=== PATIENT | male | born 1975 | race Caucasian/White ===

== ENCOUNTER 2022-07-31 19:02 | Observation (INO) | payer BC ==
[2022-07-31 19:35] VITALS: BMI 29.9
[2022-07-31] MEDS ORDERED: DIPHTH,PERTUSS(ACELL),TET 0.5 ML DISP.SYRIN IM ONE ×3 (20:57→22:45)
[2022-07-31] MEDS ORDERED: ACETAMINOPHEN 1000 MG/100 ML BAG IVPB ONE (20:57)
[2022-07-31] MEDS ORDERED: ACETAMINOPHEN INJECTION 100 ML IVPB ONE (21:52)
[2022-07-31 22:27] LABS: HEMATOCRIT 43.8 % (35.4-49); MCHC 34.4 g/dl (32.0-35.9); MEAN CELL VOLUME 90.1 fl (80-96); MEAN PLT VOLUME 7.8 fl (7.5-11.1); PLATELET COUNT 197 10^3/uL (134-434); RBC 4.86 M/mm3 (4.00-5.60); RDW 12.7 % (11.9-15.9); WHITE BLOOD COUNT 8.7 K/mm3 (4.0-10.0)
[2022-07-31 22:50] LABS: ALBUMIN 4.5 g/dl (3.4-5.0); BLOOD UREA NITROGEN 15.6 mg/dL (7-18)
[2022-07-31 22:52] LABS: PROTHROMBIN TIME (PATIENT) 11.5 SEC (9.7-13.0)
[2022-07-31 22:53] LABS: CREATININE 1.1 mg/dL (0.55-1.3)
[2022-07-31 22:54] LABS: ACTIVATED PTT 27.6 SECONDS (25.2-36.5)
[2022-07-31 22:55] LABS: BILIRUBIN,TOTAL 0.6 mg/dL (0.2-1); TOT PROT 7.6 g/dl (6.4-8.2)
[2022-08-01] MEDS ORDERED: ACETAMINOPHEN 1000 MG/100 ML BAG IVPB PRN (02:20)
[2022-08-01] MEDS ORDERED: LIDOCAINE 5% TOPICAL PATCH TP ONE (02:21)
[2022-08-01] MEDS ORDERED: LACTATED RINGERS SOLUTION 1,000 ML IV SCH (02:30)
[2022-08-01] MEDS ORDERED: LIDOCAINE 5% TOPICAL PATCH ONE (04:55)
[2022-08-01] MEDS ORDERED: LISINOPRIL 20 MG TABLET ONE ×2 (04:55→11:04)
[2022-08-01] MEDS: LISINOPRIL 20 MG TABLET PO SCH ×2 (05:10→10:57)
[2022-08-01 08:01] LABS: BASO % 0.7 % (0-2.0); EOS % 1.2 % (0-4.5); HEMATOCRIT 42.2 % (35.4-49); HEMOGLOBIN 14.5 GM/dL (11.7-16.9); LYMPH % 26.6 % (8-40); MCH 30.6 pg (25.7-33.7); MCHC 34.4 g/dl (32.0-35.9); MEAN CELL VOLUME 88.9 fl (80-96); MEAN PLT VOLUME 8.2 fl (7.5-11.1); MONO % 9.3 % (3.8-10.2); NEUT % 62.2 % (42.8-82.8); PLATELET COUNT 202 10^3/uL (134-434); RBC 4.75 M/mm3 (4.00-5.60); RDW 12.4 % (11.9-15.9); WHITE BLOOD COUNT 6.4 K/mm3 (4.0-10.0)
[2022-08-01 08:31] LABS: CALCIUM 10.1 mg/dL (8.5-10.1)
[2022-08-01 08:32] LABS: BLOOD UREA NITROGEN 14.6 mg/dL (7-18); MAGNESIUM 2.4 mg/dL (1.8-2.4)
[2022-08-01 08:34] LABS: PHOSPHOROUS 3.4 mg/dL (2.5-4.9)
[2022-08-01 08:35] LABS: CREATININE 1.1 mg/dL (0.55-1.3)
[2022-08-01 08:36] LABS: BILIRUBIN,TOTAL 0.6 mg/dL (0.2-1); TOT PROT 6.9 g/dl (6.4-8.2)
[2022-08-01 08:39] LABS: CHOLESTEROL 223 mg/dL (50-200); TRIGLYCERIDES 116 mg/dL (0-150)
[2022-08-01 08:40] LABS: LDL CHOLESTEROL (ONLY SJRH) 145 mg/dL (5-100)
[2022-08-01 08:42] LABS: HDL CHOLESTEROL 53 mg/dL (40-60)
[2022-08-01] MEDS: ENOXAPARIN NA (PORCINE) 40 MG/0.4 ML DISP.SYRIN SQ SCH (10:57)
[2022-08-01] MEDS: ESCITALOPRAM OXALATE 20 MG TABLET PO SCH (10:57)
[2022-08-01] MEDS ORDERED: ENOXAPARIN NA (PORCINE) 40 MG/0.4 ML DISP.SYRIN SQ ONE (11:05)
[2022-08-01] MEDS ORDERED: ESCITALOPRAM OXALATE 10 MG TABLET ONE (11:05)
[2022-08-01 11:49] LABS: URINE APPEARANCE CLEAR; URINE BILIRUBIN NEGATIVE (NEGATIVE); URINE COLOR YELLOW; URINE GLUCOSE (UA) NEGATIVE (NEGATIVE); URINE KETONE NEGATIVE (NEGATIVE); URINE LEUK ESTERASE NEGATIVE (NEGATIVE); URINE NITRITE NEGATIVE (NEGATIVE); URINE PROTEIN NEGATIVE (NEGATIVE); URINE UROBILINOGEN 0.2 mg/dL (0.2-1.0)
[2022-08-01] MEDS ORDERED: LIDOCAINE PATCH REMOVAL MC ONE (14:00)
[2022-08-01] MEDS ORDERED: amLODIPine BESYLATE 5 MG TABLET (FP) PO ONE (17:13)
[2022-08-01] MEDS ORDERED: amLODIPine BESYLATE 5 MG TABLET (FP) ONE (18:27)
[2022-08-01 18:32] VITALS: TEMP 98
[2022-08-01] MEDS ORDERED: ATORVASTATIN CA 20 MG TABLET (FP) PO SCH (22:00)
[2022-08-01] MEDS ORDERED: LISINOPRIL 20 MG TABLET PO SCH (22:00)
[2022-08-02] MEDS: LISINOPRIL 20 MG TABLET PO SCH ×2 (05:30→09:29)
[2022-08-02 05:53] VITALS: BP 141/91; PULSE 68; RESP 18
[2022-08-02 08:49] LABS: HEMOGLOBIN 14.3 GM/dL (11.7-16.9); MCH 31.2 pg (25.7-33.7); MCHC 34.9 g/dl (32.0-35.9); MEAN CELL VOLUME 89.3 fl (80-96); PLATELET COUNT 180 10^3/uL (134-434); RBC 4.59 M/mm3 (4.00-5.60); RDW 12.7 % (11.9-15.9); WHITE BLOOD COUNT 6.1 K/mm3 (4.0-10.0)
[2022-08-02] MEDS ORDERED: amLODIPine BESYLATE 5 MG TABLET (FP) ONE (08:57)
[2022-08-02] MEDS ORDERED: ENOXAPARIN NA (PORCINE) 40 MG/0.4 ML DISP.SYRIN SQ ONE (08:57)
[2022-08-02] MEDS ORDERED: LISINOPRIL 20 MG TABLET ONE (08:57)
[2022-08-02] MEDS ORDERED: ESCITALOPRAM OXALATE 10 MG TABLET ONE (08:57)
[2022-08-02] MEDS: ESCITALOPRAM OXALATE 20 MG TABLET PO SCH (09:15)
[2022-08-02 09:16] LABS: BLOOD UREA NITROGEN 14.2 mg/dL (7-18); CALCIUM 9.9 mg/dL (8.5-10.1); MAGNESIUM 2.3 mg/dL (1.8-2.4)
[2022-08-02 09:19] LABS: PHOSPHOROUS 2.9 mg/dL (2.5-4.9)
[2022-08-02] MEDS: ENOXAPARIN NA (PORCINE) 40 MG/0.4 ML DISP.SYRIN SQ SCH (09:29)
[2022-08-02] MEDS ORDERED: LISINOPRIL 20 MG TABLET PO SCH (10:00)
[2022-08-02] MEDS ORDERED: amLODIPine BESYLATE 5 MG TABLET (FP) PO SCH (10:00)
[2022-08-02] MEDS ORDERED: OSELTAMIVIR PHOSPHATE 75 MG CAPSULE ONE (11:12)
== END 2022-08-02 11:10 | disposition home or self-care (01) ==
LOC: JER 19:02 → JERBED 08-01 01:42
PROVIDERS: ADMIT Internal Medicine; ATTEND Internal Medicine
PROC: 3E033NZ Introduction of Analgesics, Hypnotics, Sedatives into Peripheral Vein, Percutaneous Approach (ICD-10-PCS; principal; 2022-08-01)
PROC: 3E0234Z Introduction of Serum, Toxoid and Vaccine into Muscle, Percutaneous Approach (ICD-10-PCS; 2022-08-01)
PROC: 3E023GC Introduction of Other Therapeutic Substance into Muscle, Percutaneous Approach (ICD-10-PCS; 2022-08-01)
DX: S22.42XA Multiple fractures of ribs, left side, initial encounter for closed fracture (principal); W18.39XA Other fall on same level, initial encounter; Y93.89 Activity, other specified; Y92.002 Bathroom of unspecified non-institutional (private) residence as the place of occurrence of the external cause; R07.81 Pleurodynia; I95.1 Orthostatic hypotension; E66.8 Other obesity; Z68.30 Body mass index [BMI] 30.0-30.9, adult; E78.5 Hyperlipidemia, unspecified
CPT/HCPCS: 36415; 70450-TC; 71046-TC-FY; 71260-TC; 72125-TC; 74177-TC; 80048; 80053; 80061; 81003; 82550; 82553; 83036; 83735; 84100; 84443; 84484; 85025; 85027; 85610; 85730; 86850; 86900; 86901; 87086; 90715; 93005; 93010; 93306-TC; 99285-25; C9803-CS; G0378; Q9967; U0003; U0005